=== PATIENT | female | born 1940 | race Caucasian/White ===

== ENCOUNTER 2017-07-06 12:55 | Day surgery (SDC) | payer OTHER, BC ==
[~2017-07-06] VITALS: Ht 154.9 cm; Wt 66.3 kg
[~2017-07-06 12:55] MED LIST: ATIVAN0.5 MG PO; CLARITIN10 M3 PO; COUMADIN2 MG PO; LASIX20 MG PO; LOPRESSOR50 MG PO; LUTEIN6 M1 PO; PRILOSEC20 MG PO; TYLENOL WITH C1 EACH PO
[2017-07-06 13:36] LABS: INTER. NORMALIZED RATIO 1.3; PROTHROMBIN TIME 14.6 SEC (10.2-12.9)
[2017-07-06 13:40] VITALS: BP 152/72
[2017-07-06 18:25] VITALS: BP 173/80
[2017-07-06 19:05] VITALS: BP 154/73
== END 2017-07-06 19:20 | disposition home or self-care (01) ==
LOC: SDC 12:55
PROVIDERS: Orthopaedic Surgery Sports Medicine
PROC: 0QSJ04Z Reposition Right Fibula with Internal Fixation Device, Open Approach (ICD-10-PCS; principal; 2017-07-06)
DX: S82.61XA Displaced fracture of lateral malleolus of right fibula, initial encounter for closed fracture (principal); W01.0XXA Fall on same level from slipping, tripping and stumbling without subsequent striking against object, initial encounter; Y93.01 Activity, walking, marching and hiking; Y92.009 Unspecified place in unspecified non-institutional (private) residence as the place of occurrence of the external cause; I10 Essential (primary) hypertension; I48.91 Unspecified atrial fibrillation; M81.0 Age-related osteoporosis without current pathological fracture; K21.9 Gastro-esophageal reflux disease without esophagitis; I08.0 Rheumatic disorders of both mitral and aortic valves; Z79.01 Long term (current) use of anticoagulants; Z88.2 Allergy status to sulfonamides
CPT/HCPCS: 73610; 76000; 85610; C1713; J0690; J1170; J2405; J3010; S0020